=== PATIENT | male | born 1965 | race Caucasian/White ===

== ENCOUNTER 2017-02-01 15:34 | Emergency (ER) | payer MEDICAID ==
[~2017-02-01] VITALS: Ht 177.8 cm; Wt 88.5 kg
[~2017-02-01 15:34] MED LIST: BUPR1FIL5 PO
[2017-02-01 15:35] VITALS: BP 116/74
[2017-02-01] MEDS ORDERED: DIAZEPAM 5 MG TABLET ONE (15:56)
[2017-02-01] MEDS ORDERED: HYDROcodone/APAP 5/325 TABLET ONE ×2 (15:57→16:49)
[2017-02-01] MEDS ORDERED: HYDROcodone/APAP 5/325 TABLET PO ONE ×2 (16:00→17:00)
[2017-02-01] MEDS ORDERED: DIAZEPAM 5 MG TABLET PO ONE (16:00)
[2017-02-01] MEDS ORDERED: KETOROLAC 30 MG/1 ML IM ONE (16:00)
== END 2017-02-01 17:02 | disposition home or self-care (01) ==
LOC: ED 16:37
DX: G89.29 Other chronic pain (principal); M54.2 Cervicalgia; Z90.49 Acquired absence of other specified parts of digestive tract
CPT/HCPCS: 99284; J7512

== ENCOUNTER 2017-03-04 13:22 | Emergency (ER) | payer MEDICAID ==
[~2017-03-04] VITALS: Ht 177.8 cm; Wt 88.1 kg
[2017-03-04 13:23] VITALS: BP 129/76
[2017-03-04 14:05] LABS: HEMATOCRIT 43.8 % (39.2-51.8); HEMOGLOBIN 14.9 g/dL (13.7-18.0)
[2017-03-04 14:17] LABS: ASPARTATE AMINO TRANSFERASE 25 U/L (15-37); BLOOD UREA NITROGEN 19 mg/dL (7-18)
[2017-03-04] MEDS ORDERED: ASPI-515 PO (14:32)
[2017-03-04] MEDS ORDERED: TAMS0.4C2 PO (14:32)
== END 2017-03-04 17:49 | disposition left against medical advice (07) ==
LOC: ED 16:34
DX: I86.1 Scrotal varices (principal)
CPT/HCPCS: 36415; 76870; 80053; 85025; 99285

== ENCOUNTER → 2017-08-16 | Outpatient (CLI) | payer BC ==
[~2017-08-16] MED LIST changes: +ASPI-515 PO; +OXYC-302 PO; +TAMS0.4C2 PO
== END ==
LOC: STAR 13:36
PROVIDERS: ATTEND Orthopaedic Surgery
DX: Z02.9 Encounter for administrative examinations, unspecified (principal)

== ENCOUNTER 2017-08-23 08:45 | Day surgery (SDC) | payer BC ==
[~2017-08-23] VITALS: Ht 177.8 cm; Wt 88.0 kg
[2017-08-23] MEDS ORDERED: MIDAZOLAM 1 MG/ML, 2ML ONE (09:13)
[2017-08-23] MEDS ORDERED: FENTANYL PF 250 MCG/5ML ONE (09:13)
[2017-08-23 09:17] VITALS: BP 145/90
[2017-08-23] MEDS: ACETAMINOPHEN 500 MG TABLET PO ONE (09:30)
[2017-08-23] MEDS: GABAPENTIN 300 MG CAPSULE PO ONE (09:31)
[2017-08-23] MEDS: OxyconTIN ER 20 MG TAB.ER PO ONE (09:31)
[2017-08-23] MEDS: LACTATED RINGERS 1,000 ML IV SCH (09:33)
[2017-08-23] MEDS ORDERED: OXYcodone/APAP 5/325MG TABLET PO SCH (11:00)
[2017-08-23] MEDS: LIDOCAINE/PF 1%, 30ML ONE (11:11)
[2017-08-23] MEDS: BUPIVACAINE/PF 0.5% INFIL ONE (11:12)
[2017-08-23] MEDS ORDERED: FENTANYL PF 100 MCG/2ML IV PRN (12:00)
[2017-08-23] MEDS ORDERED: MORPHINE SULFATE 4 MG/ML, 1ML IVPush PRN (12:00)
[2017-08-23] MEDS ORDERED: ALBUTEROL SULFATE 2.5 MG/3 ML NPPB PRN (12:00)
[2017-08-23] MEDS ORDERED: OXYcodone 5 MG/5 ML ORAL.SOL UDC PO PRN (12:00)
[2017-08-23] MEDS ORDERED: LABETALOL 5MG/ML, 20ML IV PRN (12:00)
[2017-08-23] MEDS ORDERED: hydrALAzine 20 MG/ML, 1ML IV PRN (12:00)
[2017-08-23] MEDS ORDERED: PROMETHAZINE 25 MG/ML, 1ML IV PRN (12:00)
[2017-08-23] MEDS ORDERED: HYDROmorphone 1 MG/ML, 1ML IV PRN (12:00)
[2017-08-23] MEDS ORDERED: MEPERIDINE/PF 25MG/0.5ML IVPush PRN (12:00)
[2017-08-23] MEDS ORDERED: MIDAZOLAM 1 MG/ML, 2ML IV PRN (12:00)
[2017-08-23] MEDS ORDERED: PROPOFOL 10 MG/ML, 20ML ONE (15:33)
[2017-08-23] MEDS ORDERED: ONDANSETRON 2MG/ML, 2ML ONE (15:33)
[2017-08-23] MEDS ORDERED: CEFAZOLIN 1,000 MG ONE (15:33)
[2017-08-23] MEDS ORDERED: DEXAMETHASONE 4 MG/ML, 1ML ONE (15:33)
[2017-08-23] MEDS ORDERED: SUCCINYLCHOLINE 20 MG/ML, 10ML ONE (15:33)
== END 2017-08-23 13:45 | disposition home or self-care (01) ==
LOC: OUT 08:45
PROVIDERS: ATTEND Orthopaedic Surgery
DX: M75.111 Incomplete rotator cuff tear or rupture of right shoulder, not specified as traumatic (principal); M19.011 Primary osteoarthritis, right shoulder; M65.811 Other synovitis and tenosynovitis, right shoulder; M66.821 Spontaneous rupture of other tendons, right upper arm; M75.41 Impingement syndrome of right shoulder; Z91.013 Allergy to seafood; Z99.81 Dependence on supplemental oxygen; Z87.891 Personal history of nicotine dependence
CPT/HCPCS: 29823; 29824; 29826; 29828; 64415; C1713; J0330; J0690; J1100; J2250; J2405; J2704; J3010; J3490; J7120

== ENCOUNTER 2019-07-02 01:02 | Emergency (ER) | payer BC ==
[~2019-07-02] VITALS: Ht 177.8 cm; Wt 97.1 kg
[2019-07-02 01:04] VITALS: BP 139/97
[2019-07-02] MEDS ORDERED: IBUPROFEN 800 MG TABLET PO ONE (01:30)
[2019-07-02] MEDS ORDERED: IBUPROFEN 800 MG TABLET ONE (01:50)
== END 2019-07-02 02:20 | disposition home or self-care (01) ==
LOC: ED 02:02
DX: M10.072 Idiopathic gout, left ankle and foot (principal); Z90.49 Acquired absence of other specified parts of digestive tract; Z90.89 Acquired absence of other organs; Z87.891 Personal history of nicotine dependence
CPT/HCPCS: 82962; 99283; J7512